=== PATIENT | female | born 1945 | race Caucasian/White ===

== ENCOUNTER 2017-08-23 10:31 | Emergency (ER) | END 2017-08-23 13:25 | disposition home or self-care (01) ==

== ENCOUNTER 2018-02-11 13:29 | Emergency (ER) | END 2018-02-11 15:33 | disposition home or self-care (01) ==

== ENCOUNTER 2018-07-20 09:39 | Day surgery (SDC) | payer MEDICARE, OTHER ==
[~2018-07-20] VITALS: Ht 157.5 cm; Wt 85.8 kg
[~2018-07-20 09:39] MED LIST: ACET325T33 PO; FLUC150T PO; IBUP-1561 PO; NITR-58 PO; OMEP20CA16 PO; VIT D
[2018-07-20 10:30] VITALS: Ht 157.5 cm; Wt 85.8 kg
[2018-07-20] MEDS ORDERED: ASPI-903 PO (10:33)
[2018-07-20] MEDS ORDERED: PROPOFOL 20 ML ONE (10:37)
[2018-07-20 10:43] VITALS: BP 111/52; PULSE 76; RESP 22
== END 2018-07-20 13:45 | disposition home or self-care (01) ==
LOC: GIL 09:39
PROVIDERS: ATTEND Internal Medicine Gastroenterology
DX: R19.4 Change in bowel habit (principal); D12.5 Benign neoplasm of sigmoid colon; K64.8 Other hemorrhoids
CPT/HCPCS: 88305